=== PATIENT | male | born 2000 | race Caucasian/White ===

== ENCOUNTER 2018-05-21 18:12 | Day surgery (SDC) | payer OTHER ==
[~2018-05-21 18:12] MED LIST: Dexamethasone 20 MG/5 ML VIAL ONE; Ketorolac Tromethamine 30 MG/ML VIAL ONE; Lidocaine 1% PF 5 ML VIAL ONE; Ondansetron HCl/PF 4 MG/2 ML Vial ONE; PROPOFOL 200 MG/20 ML VIAL ONE; Succinylcholine Chloride 20 MG/ML 10 ml SYRINGE FS ONE
[2018-05-21] MEDS ORDERED: Clindamycin/D5W 600 mg/50 ml Premix Bag ONE (18:42)
[2018-05-21 18:49] LABS: #Basophils 0.1 thou/uL (0.0-0.2); #Eosinphils 0.4 thou/uL (0.0-0.7); #Lymphocytes 2.6 thou/uL (1.20-3.40); #Monocytes 0.8 thou/uL (0.11-0.59); #Neutrophils 6.5 thou/uL (1.40-6.50); %Basophils 1.1 % (0.0-1.0); %Eosinophils 3.8 % (0.0-10.0); %Lymphocytes 24.8 % (28.0-48.0); %Neutrophils 62.4 % (31.0-61.0); Hemoglobin 16.8 g/dL (14.0-18.0); Mean Corpuscular HGB CONC 34.5 g/dL (32.0-36.0); Mean Corpuscular Hemoglobin 33.4 pg (25.0-35.0); Mean Platelet Volume 7.5 fL (7.4-10.4); Platelet Count 233 thou/uL (130-400); RBC Distribution Width 11.3 % (11.5-14.5); Red Blood Cell (RBC) Count 5.04 mill/uL (4.00-5.20); White Blood Cell (WBC) Count 10.5 thou/uL (4.8-10.8)
[2018-05-21] MEDS ORDERED: Bupivacaine PF 0.5% 30 ML VIAL ONE (21:41)
[2018-05-21] MEDS ORDERED: Sodium Chloride 0.9% 10 ML ONE (21:41)
[2018-05-21] MEDS ORDERED: Bacitracin Zinc Ointment 30 gm TUBE ONE (21:41)
[2018-05-21] MEDS ORDERED: Thrombin 5000 UNITS/5 ML VIAL ONE (22:03)
[2018-05-21] MEDS ORDERED: Fentanyl 100 MCG/2 ML VIAL ONE (22:38)
[2018-05-21] MEDS ORDERED: Sodium Chloride 0.9% 20 ML ONE (22:45)
[2018-05-22] MEDS ORDERED: Ketorolac Tromethamine 30 MG/ML VIAL ONE (00:14)
--- NOTE | 2018-05-22 08:27 | OP ---
DATE OF PROCEDURE: 05/21/2018 PREOPERATIVE DIAGNOSES: 1. Right middle finger distal phalanx open fracture. 2. A 4.0 cm wound, right middle finger, complex. 3. Nail bed laceration. PROCEDURES PERFORMED: 1. Debridement of material associated with open fracture. 2. Open treatment of open fracture of distal phalanx in right middle finger. 3. Closure of wound of 4 cm. 4. Repair of nail bed. 5. Full-thickness skin graft from antecubital fossa, . COMPLICATIONS: None. ESTIMATED BLOOD LOSS: 10 mL. TOURNIQUET TIME: 18 minutes. INDICATION: The patient had accident at work where 2 machines caught his finger, leaving him with op en fracture, exposed bone, nail bed injury, and almost 4-cm jagged laceration, which required special techniques to close. Operative intervention in operating room environment was thus indicated. DESCRIPTION OF PROCEDURE: After successful general LMA technique, the limb was prepped and draped. The patient then had time-out done appropriately. C-arm was brought into the field. We identified t he fracture site. We then cleaned off the blood, debrided the wound edges and few fragments, and saw he had a jagged laceration almost 5 cm long, which approximately 3 could be closed. We then irrigat ed with a Pulsavac after debridement of material associated with open fracture and was accomplished w ith a Michael torres blade, and then we debrided the nail bed, repaired the nail bed by bringing up fatty tissue to it using a 4-0 Monocryl. After the irrigation with 2 liters of normal saline and Pul savac pressure with antibiotics inside, we then brought the fat layer where there was no dermis or ep idermis, and was approximately 0.5 cm wide up to the level of the nail bed, securing it with absorbab le suture, repaired the 3-cm laceration that was repairable that was 90 degrees to the distal lacerat ion, and then made a measurement of the repaired nail bed back to the fatty bed, which measured 2 x 1 cm. We then had already given the patient 20 mL of 0.5% Marcaine block, 10 at the donor site antecubital and 10 at the digit, metacarpophalangeal joint for digital block. We now harvested a 2 x 0.5 cm full -thickness skin graft from the antecubital fossa closed the wound primarily after obtaining hem ostasis with a running 4-0 Monocryl and interrupted 4-0 nylon in simple pattern. We then finished de nuding the fat, placed the graft down on the bed, secured it with several 4-0 nylons, and then had a running 6-0 chromic to hold it against all surfaces including the nail bed. The patient then had the bacitracin, Adaptic applied to this wound, mineral oil-soaked cotton ball, b olstered by the 3-0 nylon bolster sutures, and then the patient had a bulky dressing applied over the bacitracin, Adaptic, cotton ball soaked in mineral oil . When the bulky dressing was completel y placed on both sites, the patient left the operating room without evidence of anesthetic or operati ve complication.
== END 2018-05-22 00:50 | disposition home or self-care (01) ==
LOC: SDC 18:12
PROVIDERS: ATTEND Orthopaedic Surgery Hand Surgery
DX: S62.632B Displaced fracture of distal phalanx of right middle finger, initial encounter for open fracture (principal); F17.210 Nicotine dependence, cigarettes, uncomplicated; W31.82XA Contact with other commercial machinery, initial encounter; Y99.0 Civilian activity done for income or pay
CPT/HCPCS: 85025; 96372; A4216; J1100; J1885; J2001; J2405; J2704; J3010; J3490; S0020